=== PATIENT | female | born 1975 | race Caucasian/White ===

== ENCOUNTER 2025-10-26 18:31 | Emergency (ER) | payer OTHER ==
[~2025-10-26] VITALS: Ht 165.1 cm; Wt 69.1 kg
[~2025-10-26 18:31] MED LIST: [UNRECOGNIZED DRUG - OTHER]
[2025-10-26 18:35] VITALS: TEMP 98.1
[2025-10-26 19:12] LABS: PLATELET COUNT (AUTO) 330 K/uL (150-450); RED BLOOD CELL COUNT(AUTO) 4.74 MIL/uL (4.00-5.20); RED CELL DISTRIBUTION WIDTH 13.8 % (11.5-14.5); WHITE BLOOD COUNT (AUTO) 7.8 K/uL (4.5-11.0)
[2025-10-26 19:13] LABS: CALCIUM, TOTAL 9.2 mg/dL (8.8-10.5); CREATININE 0.66 mg/dL (0.60-1.30); GLOMERULAR FILTR. RATE CALC > 60 mL/min (>60); GLUCOSE,RANDOM 91 mg/dL (70-110); SODIUM SERUM 137 mmol/L (136-145); UREA NITROGEN, BLOOD 8 mg/dL (7-18)
[2025-10-26 19:17] LABS: ASPARTATE AMINOTRANSFERASE 36.0 U/L (15-37); TOTAL PROTEIN, SERUM 8.1 g/dL (6.4-8.2)
[2025-10-26 20:50] LABS: TROPONIN I-HIGH SENSITIVITY 5 ng/L (<51)
[2025-10-26] MEDS: MORPHINE SULFATE 2 MG/ML SYRINGE IVP ONE (22:14)
[2025-10-26 22:16] VITALS: BP 129/74; PULSE 63; RESP 14; O2SAT 98
[2025-10-26 22:26] LABS: APPEARANCE,URINE HAZY (CLEAR); GLUCOSE, URINE (UA) NEGATIVE (NEGATIVE); LEUKOCYTE ESTERASE ,URINE SMALL (NEGATIVE); NITRATE,URINE NEGATIVE (NEGATIVE); OCCULT BLOOD,URINE TRACE (NEGATIVE); SPECIFIC GRAVITIY, URINE 1.011 (1.003-1.030)
[2025-10-26 22:50] LABS: SQUAMOUS EPITHELIAL CELL,UR Few /LPF (None Seen)
[2025-10-26] MEDS ORDERED: POLY17PO62 PO (22:51)
== END 2025-10-26 23:41 | disposition home or self-care (01) ==
LOC: EMS 18:31
DX: K59.00 Constipation, unspecified (principal); R10.84 Generalized abdominal pain
CPT/HCPCS: 99285; 74176; 96374; 80048; 80076; 81001; 83690; 84484; 85025; 36415; 74018; 93005; J2270